=== PATIENT | female | born 1960 | race Caucasian/White ===

== ENCOUNTER 2018-04-18 13:01 | Outpatient (CLI) | payer BC, SELFPAY ==
--- NOTE | 2018-04-18 11:01 | DI.RAD_ITS ---
SYMPTOM/DIAGNOSIS: RT KNEE PJAIN, M25.561 RIGHT KNEE: Femoral tibial joint spaces are well maintained. There is mild spurring from the femoral intercondylar notch. There is mild narrowing and spurring of the patellofemoral joint. No joint effusion is seen. 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
== END 2018-04-18 13:21 ==
PROVIDERS: PCP Family Medicine; Visit Provider Internal Medicine
DX: M25.561 Pain in right knee (principal); M22.2X1 Patellofemoral disorders, right knee
CPT/HCPCS: 73562

== ENCOUNTER 2018-05-02 11:17 | Outpatient (CLI) | payer BC, SELFPAY ==
--- NOTE | 2018-05-02 11:26 | DI.US_ITS ---
SYMPTOMS/DIAGNOSIS: RIGHT LEG PAIN, M79.604 RIGHT LEG ULTRASOUND: There is no evidence of DVT. No popliteal cyst is demonstrated.
== END 2018-05-02 11:37 ==
PROVIDERS: PCP Family Medicine; Visit Provider Family Medicine
DX: M79.604 Pain in right leg (principal)
CPT/HCPCS: 93971

== ENCOUNTER 2019-01-06 11:28 | Outpatient (REF) | payer BC, SELFPAY ==
--- NOTE | 2019-01-06 10:00 | PAPFT_PTH ---
PATIENT: Bee Ortega LOC: [facility] U#:[id number] AGE/SX: 58/F ROOM: RE01/06/[address]: Erica Luna MD : 1960 BED: DIS: 01/06/2019 SPEC #: [id number] RECD: 01/06/19 13:02 STATUS: ANGÉLICA CHOWDHURY #: [id number] ADALGISA: 01/06/19 10:[address]: Erica Luna DEPT: [facility] Cytology RECD BY: Nat Moody Tissues: 1 - CX/ENDOCX FOR PAP SMEARS Procedures: PAP THIN PREP/UVM Screening Comments: [id number]
== END 2019-01-06 11:48 ==
LOC: LBN 11:28
PROVIDERS: PCP Family Medicine; Visit Provider Family Medicine
DX: Z12.4 Encounter for screening for malignant neoplasm of cervix (principal)
CPT/HCPCS: 88142

== ENCOUNTER 2019-01-07 01:03 | Outpatient (CLI) | payer BC, SELFPAY ==
--- NOTE | 2019-01-07 12:34 | DI.US_ITS ---
SYMPTOM/DIAGNOSIS: PELVIC PAIN, R10.2 PELVIC ULTRASOUND: Transabdominal and transvaginal exams were performed. The transabdominal exam is quite limited due to an empty bladder. The uterus measures 7.8 by 2.9 by 4.5 cm. A 2.2 cm. fibroid is seen near the fundus. The endometrial stripe measures 2 mm. The right ovary is normal in size and appearance. No cysts or masses are seen. The left ovary was unable to be visualized either transabdominally or transvaginally. No free fluid is seen. IMPRESSION: Non visualization of the left ovary. Small uterine fibroid.
== END 2019-01-07 01:23 ==
PROVIDERS: PCP Family Medicine; Visit Provider Family Medicine
DX: R10.2 Pelvic and perineal pain (principal); D25.9 Leiomyoma of uterus, unspecified
CPT/HCPCS: 76830; 76856

== ENCOUNTER 2019-03-11 01:45 | Outpatient (CLI) | payer BC, SELFPAY ==
--- NOTE | 2019-03-11 12:17 | DI.MAMMO_ITS ---
EXAM: MG MAMMO SCREENING CLINICAL HISTORY: screening Z12.39 TECHNIQUE: Bilateral full field digital CC and MLO mammographic images were obtained with 3D tomosyn thesis and utilizing computer aided detection (CAD). COMPARISON: Available for comparison. FINDINGS: Masses/Architectural Distortion: None seen. Microcalcifications: No suspicious pleomorphic-type are seen. Skin Thickening/Nipple Retraction: None. IMPRESSION: 1. No significant interval change with no specific features of malignancy noted. 2. Unless there is more urgent need, screening mammography is recommended, as per [employer] guidelines. ACR BI-RAD Category- 1 Negative Breast Density - Category C - Heterogeneously dense The mammogram demonstrates the patient's breast tissue is dense. Dense breast tissue is very common a nd is not abnormal but dense breast tissue can make it harder to find cancer on a mammogram. Also, de nse breast tissue may increase their breast cancer risk. This information about the result of the [facility] mogram report was provided to the patient to raise their awareness. Use this report when you speak wi th the patient about their risks for breast cancer, which includes their family history. At that time , you may recommend for more screening tests (Ultrasound or MRI) as they might be useful based on the ir risk. A negative radiographic report should not delay biopsy if a dominant or clinically suspicious mass is present. Up to ten percent of cancers are not identified on mammography. A negative report may reinforce clinical impression. Adenosis and dense breasts may obscure an underlying neoplasm. False positive reports average 6 to 10%.
== END 2019-03-11 02:05 ==
PROVIDERS: PCP Family Medicine; Visit Provider Family Medicine
DX: Z12.39 Encounter for other screening for malignant neoplasm of breast (principal)
CPT/HCPCS: 77063; 77067

== ENCOUNTER 2020-03-30 07:37 | Outpatient (CLI) | payer BC, SELFPAY ==
[2020-03-31 17:58] LABS: SARS-CoV-2 RNA Not Detected (NotDetected); SARS-CoV-2 RNA Source Nasal/Nares
== END 2020-03-30 07:57 ==
PROVIDERS: PCP Family Medicine; Visit Provider Surgery
DX: Z01.818 Encounter for other preprocedural examination (principal); Z11.59 Encounter for screening for other viral diseases
CPT/HCPCS: U0003

== ENCOUNTER 2020-04-02 11:12 | Day surgery (SDC) | payer BC, SELFPAY ==
[2020-04-02 11:29] VITALS: BP 136/89; PULSE 70; RESP 17; TEMP 36.3; O2SAT 97
[2020-04-02] MEDS: Lactated Ringers 1,000 ML 80 ML IV (11:57)
--- NOTE | 2020-04-02 15:03 | BOWEL_PTH ---
PATIENT: Bee Ortega LOC: [facility] U#:[id number] AGE/SX: 59/F ROOM: RE04/02/[address]: Mitali Schaefer MD : 1960 BED: DIS: 04/02/2020 SPEC #: [id number] RECD: 04/02/20 16:05 STATUS: ANGÉLICA REMohini #: [id number] ADALGISA: 04/02/20 15:[address]: Mitali Schaefer DEPT: Surgical Specimen RECD BY: Nat Moody ENTERED: 04/02/20 16:06 SP TYPE: Bowel OTHR DR: Erica Luna MD Tissues: 1 - BIOPSY BOWEL Procedures: GROSS AND MICRO LEVEL 4 Comments: [id number]
--- NOTE | 2020-04-02 15:15 | W.PM.DSUDISC ---
Discharge Plan Disposition Patient Disposition: HOME Condition: Good Discharge Details Reason For Visit: Colonoscopy Attending Provider: Mitali Schaefer Primary Care Provider: Erica Luna Home Meds and New Rx's Prescriptions: Continued sertraline 50 mg tablet 50 mg PO DAILY Qty: 90 RF: 4 Women's Daily Formula 1 EACH tablet 1 ea PO DAILY RF: 0 calcium carbonate-vitamin D3 1 EACH tablet 1 ea PO DAILY RF: 0 fluconazole 150 mg tablet 150 mg PO ONCE Qty: 2 RF: 1 cholecalciferol (vitamin D3) [Vitamin D3] 25 mcg (1,000 unit) Tablet,Chewable 25 mcg PO DAILY RF: 0 Discontinued polyethylene glycol 3350 17 gram/dose powder 238 g PO ONCE Qty: 238 RF: 0 bisacodyl [Dulcolax (bisacodyl)] 5 mg tablet,delayed release (DR/EC) 5 mg PO ONCE Qty: 4 RF: 0 Discharge Instructions Additional Instructions: Findings: One tiny polyp was removed. My office will contact you with biopsy results. Follow up: If the polyp is adenomatous plan for a colonoscopy in 5 years. Please call if you develop: fevers >101.5 Nausea or Vomiting Abdominal pain that is not transient DAY SURGERY UNIT POST COLONOSCOPY INSTRUCTIONS 1. Because there will be medication in your system for the next 24 hours, you may feel a little sleepy. Your coordination will be affected. Therefore: a. Do not drive or operate dangerous equipment for 24 hours. b. Do not drink alcohol beverages for 24 hours (not even beer). c. Plan to go home and rest for the day. 2. Generally there are no restrictions on your activity after a day or so has gone by, but you may feel a bit fatigued for a few days. 3 After you arrive home you may have a light meal and return to a normal diet as you can tolerate it without feeling sick to your stomach. 4. After surgery, you may feel pain or discomfort. This should be only transient, but if it persists please contact your doctor. 5. If there are any questions regarding the findings of your procedure, please feel free to contact your doctor. 6. If you are unable to contact your doctor with a problem, contact the hospital at [phone]. 7. Continue all your regular medications unless directed otherwise. I understand the above instructions and have no questions. Signature of Patient or Responsible Adult Escort Date/Time Name of Responsible Adult Escort Signature of Nurse Date/Time Activity:: Activity as Tolerated Diet:: As Tolerated Discharge Orders Discharge Orders: Discharge Order (Routine); Ordered 04/02/20 Ordered By: Mitali Schaefer
--- NOTE | 2020-04-02 15:17 | W.COLOREPORT ---
Date of service: 04/02/20 Time of Service: 15:17 Colonoscopy Report Date of procedure: 04/02/20 Pre-op diagnosis general: Screening Post-op diagnosis procedure note: other (Diverticulosis, sigmoid polyp) Procedure: Colonoscopy with cold forceps polypectomy Surgeon: Mitali Schaefer Anesthesia proc note operative: MAC Indications: This 59 year old woman presents for routine screening colonoscopy. Her prior in 2009 was normal. She has no symptoms or FH colon cancer. Procedure Description: The patient was placed in the left Jones position. Propofol was titrated to sedation. Digital rectal examination revealed no abnormalities. The scope was advanced to the cecum without difficulty. The ileocecal valve and appendiceal orifice were clearly identified. The prep was good. The scope was slowly withdrawn over the course of greater than 6 minutes with no abnormalities seen in the ascending, transverse, descending colon. In the sigmoid a diminuitive polyp was removed with the cold forceps. She had mild diverticulosis. The rectum was normal including on retroflexed view. The patient tolerated the procedure well and was stable to recovery. If the polyp is adenomatous, plan for a colonoscopy in 5 years.
[2020-04-02 16:03] VITALS: BP 127/54; PULSE 60; RESP 16; TEMP 36.5; O2SAT 100
[2020-04-02 16:33] VITALS: BP 147/85; PULSE 71; RESP 18; TEMP 36.4; O2SAT 97
== END 2020-04-02 16:32 | disposition home or self-care (01) ==
PROVIDERS: PCP Family Medicine; Visit Provider Surgery
PROC: 0DJD8ZZ Inspection of Lower Intestinal Tract, Via Natural or Artificial Opening Endoscopic (ICD-10-PCS; CPT 45378; principal; 2020-04-02 13:45)
DX: Z12.11 Encounter for screening for malignant neoplasm of colon (principal); K57.30 Diverticulosis of large intestine without perforation or abscess without bleeding; D12.5 Benign neoplasm of sigmoid colon
CPT/HCPCS: 45380; 88305; J2001

== ENCOUNTER 2020-04-13 00:42 | Outpatient (CLI) | payer BC, SELFPAY ==
--- NOTE | 2020-04-13 10:49 | DI.MAMMO_ITS ---
EXAM: MAMMO SCREENING CLINICAL HISTORY: screening,Z12.39 TECHNIQUE: Mammograms were interpreted according to the usual protocol including computer analysis w [employer] CAD system, tomosynthesis and C-view imaging. COMPARISON: FINDINGS: The breasts are of moderate density with fairly symmetrical distribution of fibroglandular tissue. N o dominant mass or clumped microcalcification is identified in either breast. The current examinatio n is compared with previous examinations including February 2019 and there has been no gross interval change in appearance in comparison with the prior studies. IMPRESSION: No specific evidence of malignancy at this time. Routine screening examinations are suggested at ye liz intervals in this age group according to the ACS ACR guidelines. BI-RADS Category 1 - Negative Breast Density - Category B - Scattered areas of fibroglandular density
== END 2020-04-13 01:02 ==
PROVIDERS: PCP Family Medicine; Visit Provider Family Medicine
DX: Z12.31 Encounter for screening mammogram for malignant neoplasm of breast (principal)
CPT/HCPCS: 77063; 77067

== ENCOUNTER 2020-07-10 09:04 | Emergency (ER) | payer BC, SELFPAY ==
[2020-07-10] VITALS (46 sets, daily range): BP systolic 126–161; BP diastolic 59–104; PULSE 64–81; RESP 9–18; TEMP 36.3; O2SAT 92–100
--- NOTE | 2020-07-10 09:15 | DI.RAD_ITS ---
EXAM: XR WRIST RT COMPLETE CLINICAL HISTORY: pain s/p fall. TECHNIQUE: 2D digital imaging was performed. COMPARISON: No exams were available for comparison FINDINGS: BONES: There is a comminuted fracture of the distal right radius. The fracture is impacted and displ aced dorsally 1/2 shaft's width. There also appears to be widening of the triquetral pisiform joint. No bony destructive lesion is seen. JOINTS: The carpal bones are normally aligned. Mild degenerative changes are seen at the 1st CMC join t. SOFT TISSUE: There is moderate soft tissue swelling about the wrist. IMPRESSION: 1. Comminuted displaced and impacted fracture of the distal right radius. 2. Findings suspicious for separation of the triquetral pisiform joint. DATA REPOSITORY: RADIATION DOSE DELIVERED:
--- NOTE | 2020-07-10 09:31 | W.ED.GENAD ---
Discharge Plan Disposition Patient Disposition: HOME Condition: Stable Discharge Details Clinical Impression: Fracture of right wrist Primary Care Provider: Erica Luna ED Provider: Sabas Carson Home Meds and New Rx's Prescriptions: New oxycodone 5 mg tablet 5 mg PO TID PRN (Reason: pain) Qty: 10 RF: 0 Continued Women's Daily Formula 1 EACH tablet 1 ea PO DAILY RF: 0 calcium carbonate-vitamin D3 1 EACH tablet 1 ea PO DAILY RF: 0 sertraline 25 mg tablet 25 mg PO DAILY Qty: 90 RF: 4 cholecalciferol (vitamin D3) [Vitamin D3] 25 mcg (1,000 unit) Tablet,Chewable 25 mcg PO DAILY RF: 0 Discharge Instructions Additional Instructions: You had a sedation done to reduce a wrist fracture/dislocation call Dr. Moody's office Sunday to arrange for a follow up appointment return to the emergency department for severe worsening pain not controlled with pain medications you can take 1000mg tylenol and 600mg ibuprofen every 6 hours for pain as needed. If you need more pain relief take 1 oxycodone do not drink alcohol or drive if you take this medicine Referrals: Justo Moody MD [ [facility]FF PHYSICIAN] - Medical Decision Making 59 yo female comes in with right wrist pain s/p fall. She was running as she does frequently this morning and slipped on ice landing on her right wrist and buttock. Denies loc and has no headache, neck pain, chest pain, abdominal pain or leg pain and is walking without a limp. She did have some soreness around coccyx but has none now. She has no tendenress of c spine, t or l spine including coccyx. She has deformed right wrist and pain, normal sensation and pulses in the hand. No pain in proximal foreharm, elbow, humerus or shoulder. Will obtain xrays and reassess. Given lack of pain elsewhere or tenderness doubt injuries such as tbi, c spine injury, chest or abdominal injuries so do not feel additional imaging indicated. xray of wrist confirms fracture/dislocation of wrist. Discussed with Dr. Moody who will assist with reduction. Pt discussed risks of procedural sedation and is willing to proceed with sedation with propofol. No new pain, remains hemodynamically stable pt sedated with 65mg propofol and successful reduction done by Dr. Moody without complications. Pt will be monitored until able to ambulate and likely be d/c'd with follow up with Dr. Moody pt ambulating without difficulty and normal sensation and cap refill, tolerating po. Will d/c and have her f/u with ortho Differential Diagnosis Differential Diagnosis: fracture, dislocation Imaging Data Radiologic Study: Attestation: I personally reviewed and interpreted this imaging study as follows: Imaging: X-Ray My impression: wrist fracture/dislocation HPI General Mode of arrival: ambulatory. Date/Time Provider Initiated Documentation: 07/10/20 09:16. Limitations to Documentation: no limitations. Information obtained by: patient. History of Present Illness 59 year old F presents to the emergency department with the chief complaint of right wrist pain, described as moderate, Patient started experiencing this hour(s) (1) and it has been constant. No relieving factors improve symptom(s), No exacerbating factors reported . Patient did receive the following treatments prior to arrival, none Related Data Home Medications Medication Instructions Recorded Confirmed Women's Daily Formula 1 ea PO DAILY 12/23/12 07/10/20 calcium carbonate-vitamin D3 1 ea PO DAILY 11/27/16 07/10/20 cholecalciferol (vitamin D3) 25 mcg PO DAILY 04/01/20 07/10/20 [Vitamin D3] sertraline 25 mg tablet 25 mg PO DAILY #90 tab 07/09/20 07/10/20 oxycodone 5 mg PO TID PRN #10 tab 07/10/20 Previous Rx's Medication Instructions Recorded sertraline 25 mg tablet 25 mg PO DAILY #90 tab 07/09/20 oxycodone 5 mg PO TID PRN #10 tab 07/10/20 Allergies Allergy/AdvReac Type Severity Reaction Status Date / Time latex Allergy Mild RASH Verified 07/10/20 09:25 General Stated Complaint: Orthopedic RONI: 3 Review of Systems All systems reviewed & are unremarkable except as noted in HPI and below Constitutional Constitutional: Denies chills, Denies fever(s) and Denies weakness Cardiovascular Cardiovascular: Denies chest pain and Denies dyspnea Respiratory Respiratory: Denies cough and Denies dyspnea Gastrointestinal Gastrointestinal: Denies abdominal pain, Denies nausea and Denies vomiting Musculoskeletal Musculoskeletal: Denies joint swelling Neurologic Neurologic: Denies weakness Psychiatric Psychiatric: Denies depression [facility] Medical History Depressive disorder Hot flashes (04/27/15) HRT x OAB (overactive bladder) Tubular adenoma colonoscopy 2019/ Surgical History H/O eye surgery History of colonoscopy R eye for strabismus correction Family History Mother No problems noted. Father , 100 Essential hypertension Sister Essential hypertension Depression Brother Cancer Brother , 35 No problems noted. Maternal Grandfather , OLD AGE at age 75. No problems noted. Paternal Grandfather Heart disease Maternal Grandmother No problems noted. Paternal Grandmother Heart disease Son No problems noted. Daughter No problems noted. Social History Smoking/Tobacco Use Status: Never Smoking risk assessment performed?: Yes Alcohol Intake: current Alcohol Intake frequency: 0-2 drinks per day Alcohol type: beer and wine Drug use: Never Substance use type: does not use Caregiver/Support person: No Household members: spouse Housing: house Communication Needs: None Do you need help understanding health information?: Never Pets and animals: Yes Pets and animals: dog(s) Sexually active: Yes Do you think of yourself as: straight/heterosexual Current gender identity: female What is your relationship status?: How often do you talk on the phone with friends or family?: three or more times per week How often do you get together with friends or relatives?: decline to answer How often do you attend mandaeism or methodist services?: 1-3 times per year Do you belong to any clubs or organized social groups?: yes Panel score (0-1 are the most socially isolated patients): 3 What type of physical activity do you participate in: running Duration: 15-30 minutes/day Frequency: 5-6 times per week [place]/Protestant: Presybeterian Special [place] needs: No Seatbelt use: always Helmet use: Yes Helmet use: always Drive intox or ride w/intox route cdl driver: No Do you feel safe at home: Yes Do you feel safe in your relationship?: Yes Exam Const General: no acute distress Orientation: alert HENMT Head: normal to inspection Ears: external ears normal General nose exam: external nose normal Mouth: moist mucous membranes Eyes General: appearance normal, both eyes and all related structures Neck Neck: normal visual inspection Resp Effort & Inspection: normal respiratory effort and able to speak in complete sentences Cardio Rate: regular rate Skin General skin exam: no rashes or lesions noted Neuro General: patient alert and patient oriented x3 Extrem General: capillary refill normal Psych Mental Status: mental status grossly normal Course Vital Signs Vital signs: Vital Signs Temperature 36.3 C L 07/10/20 09:20 Pulse 72 07/10/20 09:20 Respiratory Rate 18 07/10/20 09:20 Blood Pressure 157/87 H 07/10/20 09:20 Pulse Oximetry 99 07/10/20 09:20 Temperature 36.3 C L 07/10/20 09:20 Temperature Source Temporal Artery Scan 07/10/20 09:20 Pulse 72 07/10/20 09:20 Respiratory Rate 18 07/10/20 09:20 Respiratory Effort Non-Labored 07/10/20 09:27 Blood Pressure 157/87 H 07/10/20 09:20 Blood Pressure Position Sitting 07/10/20 09:20 Pulse Oximetry 99 07/10/20 09:20 Oxygen Delivery Method Room Air 07/10/20 09:20 Oxygen Flow Rate 0 07/10/20 09:20 Pain Level 9 07/10/20 09:20 Procedures Procedural Sedation Indication: fracture/dislocation reduction ASA Class: I Preparation: process environmental technician applied, pulse oximeter, capnometry used and supplemental O2 applied IV Propofol dose (mg): 65 Patient Tolerated Procedure: well Complications: none
[2020-07-10] MEDS: HYDROmorphone 2 MG/ML VIAL 1 MG IVP ×2 (09:40→10:31)
[2020-07-10] MEDS: Normal Saline Flush 10 ML SYR IVP (09:41)
--- NOTE | 2020-07-10 10:04 | NUR.NOTE ---
1000 spoke with patient's updated and notified that we are waiting for xray to be done.
--- NOTE | 2020-07-10 10:15 | DI.RAD_ITS ---
EXAM: XR FLOURO OR C-ARM <1 HR CLINICAL HISTORY: reduciton of fracture/dislocation TECHNIQUE: 2D and realtime digital imaging was performed. CONTRAST MATERIAL: Water soluble contrast was administered. COMPARISON: No exams were available for comparison FINDINGS: Fluoroscopy was provided for Dr. Moody during the performance of a reduction of the distal right radial fracture. Please refer to the procedure report for complete details. Fluoro time: 12.8 seconds RADIATION DOSE DELIVERED:
--- NOTE | 2020-07-10 10:39 | DI.VRAD_ITS ---
PROCEDURE INFORMATION: Exam: XR Right Wrist Exam date and time: 07/10/2020 9:30 AM Age: 59 years old Clinical indication: Injury or trauma; Fall; Sprain or strain; Wrist; Right TECHNIQUE: Imaging protocol: XR Right wrist. Views: 3 or more views. COMPARISON: No relevant prior studies available. FINDINGS: Bones/joints: Comminuted, impacted, and dorsally displaced and angulated intra-articular fracture of the distal right radius. 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 IMPRESSION: Comminuted, impacted, and dorsally displaced and angulated intra-articular fracture of the distal right radius. Dictated and Authenticated by: Lizett Jeffrey MD. Ordering:REBA Obregon MD
[2020-07-10] MEDS: Propofol 200 MG/20 ML VIAL 65 MG IVP (11:14)
--- NOTE | 2020-07-10 11:25 | W.ORTHOCONSU ---
Date of service: 07/10/20 Time of Service: 11:03 History of Present Illness History of Present Illness Chief Complaint: Right Wrist Fracture Narrative: Bee is a 59yo female who was running this morning. She slipped and fell onto an outstretched right hand. She had immediate pain and deformity. She was brought to the [facility] ED and diagnosed with a displaced distal radius fracture on the right. She currently reports pain about the wrist. She also has some vague numbness over the tips of the thumb and ring finger. She denies any issue with that hand previously. She is RHD. Consults Consult date: 07/10/20 Requesting physician: Sabas Carson Consult Reason Right Distal Radius Frcture Assessment and Plan Assessment and plan (1) Fracture of right distal radius: Status: Acute Assessment and plan: Bee is a 59yo female who fell onto an outstretched right hand with a significantly displaced right distal radius fracture. She was reduced in the ED with sedation with a nearly anatomic reduction. A posterior/anterior plast splint was applied with a significant mold,using x-ray guidance. After sedation, she had improvement with the numbness of the fingers. The x-rays showed anatomic reduction after the splint was set. She will need to return to the office in 1 week for x-ray to ensure that there is no interval displacement or change. Likely splint for the next few weeks and then transition to a cast or brace. Qualifiers: Encounter type: initial encounter Fracture type: closed Fracture morphology: Colles' Qualified Code(s): S52.531A - Colles' fracture of right radius, initial encounter for closed fracture Review of Systems All systems reviewed & are unremarkable except as noted in HPI and below PFSH Medical History Depressive disorder Hot flashes (04/27/15) HRT x -2016 OAB (overactive bladder) Tubular adenoma colonoscopy 2019/ Surgical History H/O eye surgery History of colonoscopy R eye for strabismus correction Family History Mother No problems noted. Father , 100 Essential hypertension Sister Essential hypertension Depression Brother Cancer Brother , 35 No problems noted. Maternal Grandfather , OLD AGE at age 75. No problems noted. Paternal Grandfather Heart disease Maternal Grandmother No problems noted. Paternal Grandmother Heart disease Son No problems noted. Daughter No problems noted. Social History Smoking/Tobacco Use Status: Never Smoking risk assessment performed?: Yes Alcohol Intake: current Alcohol Intake frequency: 0-2 drinks per day Alcohol type: beer and wine Drug use: Never Substance use type: does not use Caregiver/Support person: No Household members: spouse Housing: house Communication Needs: None Do you need help understanding health information?: Never Pets and animals: Yes Pets and animals: dog(s) Sexually active: Yes Do you think of yourself as: straight/heterosexual Current gender identity: female What is your relationship status?: How often do you talk on the phone with friends or family?: three or more times per week How often do you get together with friends or relatives?: decline to answer How often do you attend temple or methodist services?: 1-3 times per year Do you belong to any clubs or organized social groups?: yes Panel score (0-1 are the most socially isolated patients): 3 What type of physical activity do you participate in: running Duration: 15-30 minutes/day Frequency: 5-6 times per week [place]/Mandaen: Tenriism Special [place] needs: No Seatbelt use: always Helmet use: Yes Helmet use: always Drive intox or ride w/intox limo driver: No Do you feel safe at home: Yes Do you feel safe in your relationship?: Yes Exam Const General: cooperative, healthy appearing, comfortable and no acute distress Nutritional Appearance: average body habitus Orientation: alert, awake and oriented x3 HENMT Head: normal to inspection, normocephalic and atraumatic Extrem Other: Obvious deformity to the right distal radius. There is dorsal prominendce and displacement of the hand. No skin break, laceration, or abrasion. She is able to demonstrate some thumb IP flexion and extension as well as finger abduction/adduction. Some decreased sensation over the palmar aspect of the thumb tip as well as the radial aspect of the ring finger primarily. No dense numbness in the median/radial/ulnar distribution. Palpable radial pulse. Pain to palpation of the distal radius and ulna. Results Last Vital Signs Temp 36.3 C L 07/10/20 09:20 Pulse 69 07/10/20 11:21 Resp 16 07/10/20 11:21 BP 141/84 H 07/10/20 11:21 Pulse Ox 100 07/10/20 11:21 Imaging Imaging Studies: Xray of the right wrist demonstrates a mildl comminuted and completely displaced distal radius fracture with significant dorsal displacement and shortening. No carpal fracture or malalignment. Procedures Orthopedic Fracture Reduction Right Wrist: Time out performed: Yes Side: right Fracture reduction location: radius Analgesia: procedural sedation Technique: direct manipulation Post-reduction x-rays demonstrate: anatomical reduction Post-reduction neuro exam: intact Post-reduction vascular exam: intact Splint applied: Yes Patient tolerated procedure: well
--- NOTE | 2020-07-10 11:28 | NUR.NOTE ---
1100 Time done for reduction of right wrist with conscious sedation. Samia RT in room along with Dr. Heidy Dr, Sarath Carson RN, Radiology and process description writer. [address] Carson 65mg. Splint applied and imaging done. 1115 patient awake, drowsy. 1130 Patient fully awake, states minimal pain. Sling applied to right arm. See Conscious sedation documentation.
--- NOTE | 2020-07-10 11:52 | RESPIRATORY ---
07/10/20 10:55am- Pt here for a right wrist reduction. BVM,Suction and ETC02 set up. Pre- HR 74, SPO2 100% on 3 LPM NC, ETCO2 48 mmhg, RR, 14,141/78. Throughout- HR 68, SPO2 100% on 5 LPM NC,RR 12, ETCO2 44mmhg, 143/83. Post HR 70, SPO2 100% on 3 LPM NC , RR 13, ETCO2 38mmhg, 134/81. End of case Pt is alert and talking.
--- NOTE | 2020-07-10 12:08 | NUR.NOTE ---
1204 patient assisted to standing position complains of slight dizziness. Good sensation and CMS to right hand/fingers. Drinking soda.
== END 2020-07-10 12:24 | disposition home or self-care (01) ==
PROVIDERS: Emergency Provider Emergency Medicine; PCP Family Medicine
DX: S52.591A Other fractures of lower end of right radius, initial encounter for closed fracture (principal); W00.0XXA Fall on same level due to ice and snow, initial encounter
CPT/HCPCS: 76000; 96374; 96376; 99253; 99285; 25605; 73110; 99284; J2704

== ENCOUNTER 2020-07-20 14:54 | Outpatient (CLI) | payer BC, SELFPAY ==
--- NOTE | 2020-07-20 14:45 | DI.RAD_ITS ---
CLINICAL HISTORY: F/U FX TECHNIQUE: 2D digital imaging was performed. COMPARISON: CR,XR XR WRIST RT COMPLETE from 07/10/2020 RF XR FLOURO OR C-ARM <1 HR from 07/10/2020 FINDINGS: BONES: There is again seen a mildly displaced and impacted distal right radial fracture. The patient 's wrist is in a cast. No bony destructive lesion is seen. JOINTS: The carpal bones are normally aligned. SOFT TISSUE: Normal. IMPRESSION: Mildly displaced and impacted distal right radial fracture. DATA REPOSITORY: RADIATION DOSE DELIVERED:
== END 2020-07-20 14:55 | disposition home or self-care (01) ==
LOC: DIORS 14:54
PROVIDERS: PCP Family Medicine; Visit Provider Physician Assistant
DX: S52.591A Other fractures of lower end of right radius, initial encounter for closed fracture (principal)
CPT/HCPCS: 73100

== ENCOUNTER 2020-07-29 12:48 | Outpatient (CLI) | payer BC, SELFPAY ==
--- NOTE | 2020-07-29 10:45 | DI.RAD_ITS ---
EXAM: XR WRIST RT LIMITED CLINICAL HISTORY: F/U FRACTURE. TECHNIQUE: 2D digital imaging was performed. COMPARISON: CR XR WRIST RT LIMITED from 07/20/2020 FINDINGS: There is continued satisfactory in position of the fracture fragments of the distal radius. Fracture line still evident. No significant ulnar variance. No other fractures identified. IMPRESSION: DATA REPOSITORY: RADIATION DOSE DELIVERED:
== END 2020-07-29 12:49 | disposition home or self-care (01) ==
LOC: DIORS 12:49
PROVIDERS: PCP Family Medicine; Visit Provider Student in an Organized Health Care Education/Training Program
DX: S52.591A Other fractures of lower end of right radius, initial encounter for closed fracture (principal)
CPT/HCPCS: 73100

== ENCOUNTER 2020-08-05 13:14 | Outpatient (CLI) | payer BC, SELFPAY ==
--- NOTE | 2020-08-05 11:00 | DI.RAD_ITS ---
EXAM: XR WRIST RT LIMITED CLINICAL HISTORY: F/U FRACTURE. TECHNIQUE: 2D digital imaging was performed. COMPARISON: CR XR WRIST RT LIMITED from 07/29/2020 FINDINGS: Cast material has been removed. Fracture lines in the distal radius are still evident as is a nondis placed fracture of the base of the ulnar styloid. Alignment of the fracture fragments is unchanged. If clinically indicated CT scan could be performed to determine if there is violation of the radiocarpal joint surface. IMPRESSION: DATA REPOSITORY: RADIATION DOSE DELIVERED:
== END 2020-08-05 13:15 | disposition home or self-care (01) ==
LOC: DIORS 13:15
PROVIDERS: PCP Family Medicine; Referring Provider Family Medicine; Visit Provider Physician Assistant
DX: S52.531D Colles' fracture of right radius, subsequent encounter for closed fracture with routine healing
CPT/HCPCS: 73100

== ENCOUNTER 2020-08-19 13:33 | Outpatient (CLI) | payer BC, SELFPAY ==
--- NOTE | 2020-08-19 11:00 | DI.RAD_ITS ---
EXAM: XR WRIST RT LIMITED INDICATION: F/U FRACTURE. COMPARISON: CR,XR XR WRIST RT COMPLETE from 07/10/2020 CR,XR XR WRIST RT COMPLETE from 07/10/2020 CR XR WRIST RT LIMITED from 07/20/2020 CR XR WRIST RT LIMITED from 07/20/2020 CR XR WRIST RT LIMITED from 07/29/2020 CR XR WRIST RT LIMITED from 08/05/2020 CR XR WRIST RT LIMITED from 08/05/2020 TECHNIQUE: 2D digital imaging was performed. FINDINGS: There has been no change in the alignment of the distal radial fracture. Fracture lines are still e vident. No new abnormalities are seen. DATA REPOSITORY: RADIATION DOSE DELIVERED:
== END 2020-08-19 13:34 | disposition home or self-care (01) ==
LOC: DIORS 13:34
PROVIDERS: PCP Family Medicine; Referring Provider Family Medicine; Visit Provider Physician Assistant Surgical
DX: S52.531D Colles' fracture of right radius, subsequent encounter for closed fracture with routine healing (principal)
CPT/HCPCS: 73100

== ENCOUNTER 2020-09-17 09:07 | Outpatient (CLI) | payer BC, SELFPAY ==
--- NOTE | 2020-09-17 09:10 | DI.RAD_ITS ---
Exam(s) XR WRIST RT LIMITED EXAM: XR WRIST RT LIMITED CLINICAL HISTORY: f/u fracture. TECHNIQUE: 2D digital imaging was performed. COMPARISON: CR XR WRIST RT LIMITED from 08/19/2020 FINDINGS: BONES: There has been no change in alignment of the distal right radial fracture. There has been con tinued healing of the fracture. No new fracture or dislocation is identified. No bony destructive l esion is seen. JOINTS: The carpal bones are normally aligned. SOFT TISSUE: Normal. IMPRESSION: Stable healing distal right radial fracture. DATA REPOSITORY: RADIATION DOSE DELIVERED:
== END 2020-09-17 09:08 | disposition home or self-care (01) ==
LOC: DIORS 09:07
PROVIDERS: PCP Family Medicine; Referring Provider Family Medicine; Visit Provider Physician Assistant
DX: S52.531D Colles' fracture of right radius, subsequent encounter for closed fracture with routine healing (principal)
CPT/HCPCS: 73100

== ENCOUNTER 2021-01-31 02:45 | Outpatient (CLI) | payer BC, SELFPAY ==
[2021-01-31 11:58] LABS: Calculated LDL 153 mg/dL (<100); Cholesterol 249 mg/dL (<200); Glucose 99 mg/dL (74-106); HDL Cholesterol 77 mg/dL (40-60); Triglyceride 97 mg/dL (<150)
== END 2021-01-31 02:46 | disposition home or self-care (01) ==
LOC: LBO 02:46
PROVIDERS: PCP Family Medicine; Visit Provider Family Medicine
DX: Z13.220 Encounter for screening for lipoid disorders (principal); Z13.1 Encounter for screening for diabetes mellitus
CPT/HCPCS: 36415; 80061; 82947

== ENCOUNTER 2021-02-17 02:20 | Outpatient (CLI) | payer BC, SELFPAY ==
--- NOTE | 2021-02-17 11:48 | DI.MAMMO_ITS ---
Exam(s) MAMMO SCREENING EXAM: MAMMO SCREENING CLINICAL HISTORY: screening,Z12.39 TECHNIQUE: Bilateral full field digital CC and MLO mammographic images were obtained with 3D tomosyn thesis and utilizing computer aided detection (CAD). COMPARISON: Available for comparison. FINDINGS: Masses/Architectural Distortion: None seen. Microcalcifications: No suspicious pleomorphic-type are seen. Skin Thickening/Nipple Retraction: None. IMPRESSION: 1. No significant interval change with no specific features of malignancy noted. 2. Unless there is more urgent need, screening mammography is recommended, as per [employer] guidelines. BI-RADS Category 1 - Negative Breast Density - Category B - Scattered areas of fibroglandular density Breast density category C or D implies that the patient has dense breast tissue. Dense breast tissue is very common and is not abnormal but dense breast tissue can make it harder to find cancer on a ma mmogram. Also, dense breast tissue may increase their breast cancer risk. This information about the result of the mammogram report was provided to the patient to raise their awareness. Use this report when you speak with the patient about their risks for breast cancer, which includes their family hist ory. At that time, you may recommend for more screening tests (Ultrasound or MRI) as they might be us eful based on their risk. A negative radiographic report should not delay biopsy if a dominant or clinically suspicious mass is present. Up to ten percent of cancers are not identified on mammography. A negative report may reinforce clinical impression. Adenosis and dense breasts may obscure an underlying neoplasm. False positive reports average 6 to 10%. Patient will receive a letter notifying them of these results.
== END 2021-02-17 02:40 ==
PROVIDERS: PCP Family Medicine; Visit Provider Family Medicine
DX: Z12.31 Encounter for screening mammogram for malignant neoplasm of breast (principal)
CPT/HCPCS: 77063; 77067

== ENCOUNTER 2022-01-20 17:03 | Outpatient (REF) | payer BC, SELFPAY ==
--- NOTE | 2022-01-20 15:30 | PAPFT_PTH ---
PATIENT: Bee Ortega LOC: [facility] U#:[id number] AGE/SX: 61/F ROOM: RE01/20/[address]: Tegan Jacobs : 1960 BED: DIS: 01/20/2022 SPEC #: [id number] RECD: 01/23/22 13:13 STATUS: ANGÉLICA CHOWDHURY #: [id number] ADALGISA: 01/20/22 15:[address]: Tegan Jacobs DEPT: [facility] Cytology RECD BY: Nat Moody Tissues: 1 - CX/ENDOCX FOR PAP SMEARS Procedures: PAP THIN PREP/UVM Screening HPV DNA PROBE Comments: [id number]
== END 2022-01-20 17:04 | disposition home or self-care (01) ==
LOC: LBN 17:03
PROVIDERS: PCP Family Medicine; Visit Provider Family Medicine
DX: Z12.4 Encounter for screening for malignant neoplasm of cervix (principal); Z11.51 Encounter for screening for human papillomavirus (HPV)
CPT/HCPCS: 88142; 87624

== ENCOUNTER → 2022-02-20 01:39 | Outpatient (CLI) | payer BC, SELFPAY ==
--- NOTE | 2022-02-20 06:45 | DI.MAMMO_ITS ---
Exam(s) MAMMO SCREENING EXAM: MAMMO SCREENING CLINICAL HISTORY: screening,z12.39 TECHNIQUE: Mammograms were interpreted according to the usual protocol including computer analysis w [employer] CAD system, tomosynthesis and C-view imaging. COMPARISON: 2012 through 2020 FINDINGS: The breasts are composed of scattered fibroglandular densities, Breast Density category B. No suspicious masses or suspicious microcalcifications are seen. No skin thickening or abnormal axillary lymph nodes are seen. There has been no significant change from prior exams. IMPRESSION: BI-RADS Category 1, Negative mammogram Yearly screening mammography is recommended. Breast Density - Category B, scattered fibroglandular densities. A negative radiographic report should not delay biopsy if a dominant or clinically suspicious mass is present. Up to ten percent of cancers are not identified on mammography. A negative report may reinforce clinical impression. Adenosis and dense breasts may obscure an underlying neoplasm. False positive reports average 6 to 10%. Patient will receive a letter notifying them of these results.
== END ==
PROVIDERS: PCP Family Medicine; Visit Provider Family Medicine
DX: Z12.31 Encounter for screening mammogram for malignant neoplasm of breast (principal)
CPT/HCPCS: 77063; 77067

== ENCOUNTER 2023-01-18 13:56 | Outpatient (CLI) | payer BC, SELFPAY ==
--- NOTE | 2023-01-18 12:01 | DI.RAD_ITS ---
Exam(s) XR HIP LT COMPLETE AP PELVIS EXAM: XR HIP LT COMPLETE AP PELVIS CLINICAL HISTORY: LEFT HIP PAIN. TECHNIQUE: 2D digital imaging was performed of the left hip. Two views were obtained. AP pelvis an d lateral left hip views were obtained. COMPARISON: No exams were available for comparison FINDINGS: BONES: No acute fracture is present. No bony destructive lesion is seen. JOINTS: No dislocation present. There are mild degenerative changes of the hips bilaterally with acet abular spurring noted. There are degenerative changes seen at the sacroiliac joints bilaterally. SOFT TISSUE: Normal. IMPRESSION: Mild degenerative changes seen at the left hip. DATA REPOSITORY: RADIATION DOSE DELIVERED:
== END 2023-01-18 13:57 | disposition home or self-care (01) ==
LOC: DIORS 13:57
PROVIDERS: PCP Family Medicine; Visit Provider Student in an Organized Health Care Education/Training Program
DX: M16.12 Unilateral primary osteoarthritis, left hip (principal)
CPT/HCPCS: 73502

== ENCOUNTER 2023-01-29 12:48 | Outpatient (REF) | payer BC, SELFPAY ==
--- NOTE | 2023-01-29 08:45 | PAPFT_PTH ---
PATIENT: Bee Ortega LOC: [facility]#:[id number] AGE/SX: 62/F ROOM: RE01/29/[address]: Blanche Mena NP : 1960 BED: DIS: 01/29/2023 SPEC #: [id number] RECD: 01/29/23 13:14 STATUS: ANGÉLICA REMohini #: [id number] ADALGISA: 01/29/23 08:[address]: Blanche Mena [facility]PT[facility] Cytology RECD BY: Nat Moody ENTERED: 01/29/23 13:15 SP TYPE: PAPFT OTHR DR: Tegan Jacobs Tissues: 1 - CX/ENDOCX FOR PAP SMEARS Procedures: PAP THIN PREP/UVM Screening HPV DNA PROBE Comments: [id number]
== END 2023-01-29 12:49 | disposition home or self-care (01) ==
LOC: NCHCN 12:48
PROVIDERS: PCP Family Medicine; Visit Provider Nurse Practitioner Family
DX: Z12.4 Encounter for screening for malignant neoplasm of cervix (principal); Z11.51 Encounter for screening for human papillomavirus (HPV)
CPT/HCPCS: 88142; 87624

== ENCOUNTER 2023-02-13 01:45 | Outpatient (CLI) | payer BC, SELFPAY ==
[2023-02-13 09:26] LABS: Calculated LDL 159 mg/dL (<100); Cholesterol 265 mg/dL (<200); HDL Cholesterol 84 mg/dL (40-60); TSH (W/Ref FT4) 2.27 uIU/mL (0.36-3.74); Triglyceride 112 mg/dL (<150)
== END 2023-02-13 01:46 | disposition home or self-care (01) ==
LOC: LBO 01:45
PROVIDERS: Nurse Practitioner Family; PCP Family Medicine; Visit Provider Family Medicine
DX: D36.9 Benign neoplasm, unspecified site (principal); M16.12 Unilateral primary osteoarthritis, left hip; N95.1 Menopausal and female climacteric states; R23.2 Flushing; Z00.00 Encounter for general adult medical examination without abnormal findings
CPT/HCPCS: 36415; 80061; 84443

== ENCOUNTER → 2023-11-05 14:03 | Outpatient (BNVA) | payer MEDICARE, SELFPAY | PROVIDERS: PCP Family Medicine; Referring Provider Family Medicine; Visit Provider Student in an Organized Health Care Education/Training Program | DX: M16.12 Unilateral primary osteoarthritis, left hip (principal) | CPT/HCPCS: 20611; J1010 ==

== ENCOUNTER 2023-12-17 15:18 | Outpatient (CLI) | payer MEDICARE, SELFPAY ==
--- NOTE | 2023-12-17 14:54 | DI.RAD_ITS ---
Exam(s) XR PELVIS AP EXAM: XR PELVIS AP CLINICAL HISTORY: OA L HIP. TECHNIQUE: 2D digital imaging was performed. Single AP view. COMPARISON: CR XR HIP LT COMPLETE AP PELVIS from 01/18/2023 FINDINGS: BONES: No acute fracture is present. No bony destructive lesion is seen. Enthesophytes from iliac w ings. Enthesophytes at greater trochanters, right greater than left. JOINTS: No dislocation present. Moderate narrowing of the left hip joint space, progressing from the prior exam. Subchondral cysts noted on both sides of the joint. Bilateral acetabular spurring prese nt. Mild degenerative changes of the SI joints. SOFT TISSUE: Normal. IMPRESSION: Moderate to severe degenerative changes of the left hip. DATA REPOSITORY: RADIATION DOSE DELIVERED:
== END 2023-12-17 15:19 | disposition home or self-care (01) ==
LOC: DIORS 15:18
PROVIDERS: PCP Family Medicine; Visit Provider Student in an Organized Health Care Education/Training Program
DX: M16.12 Unilateral primary osteoarthritis, left hip (principal)
CPT/HCPCS: 99213; 72170

== ENCOUNTER 2024-02-07 02:56 | Outpatient (CLI) | payer MEDICARE, SELFPAY ==
[2024-02-07 15:04] LABS: HCT 44.7 % (36.0-46.0); HGB 14.2 g/dL (11.2-15.7); MCH 30.6 pg (27.0-33.0); MCHC 31.8 % (32.0-36.0); MCV 96 fL (80-95); MPV 9.3 fL (8.0-11.0); Platelet Count 301 10^3/uL (130-400); RBC 4.64 10^6/uL (3.93-5.22); RDW 12.1 % (11.7-14.6); RDW-SD 43.2 fL; WBC 5.98 10^3/uL (4.4-10.8)
[2024-02-07 15:26] LABS: Anion Gap 2.9 mmol/L (3-11); BUN 11 mg/dL (7-18); CO2 32.1 mmol/L (21.0-32.0); CREATININE 0.7 mg/dL (0.55-1.02); Chloride 103 mmol/L (98-107); Estimated GFR 95.92 (mL/min/1.73m2); Glucose 97 mg/dL (74-106); Potassium 4.1 mmol/L (3.5-5.1); Sodium 138 mmol/L (136-145)
== END 2024-02-07 02:57 | disposition home or self-care (01) ==
LOC: LBO 02:56
PROVIDERS: PCP Family Medicine; Visit Provider Student in an Organized Health Care Education/Training Program
DX: M16.12 Unilateral primary osteoarthritis, left hip (principal); Z01.818 Encounter for other preprocedural examination
CPT/HCPCS: 36415; 80048; 85027

== ENCOUNTER 2024-02-19 05:54 | Day surgery (SDC) | payer MEDICARE, SELFPAY ==
[2024-02-19] VITALS (21 sets, daily range): BP systolic 95–150; BP diastolic 54–79; PULSE 59–83; RESP 10–24; TEMP 36.3–36.5; O2SAT 94–99; BMI 25.2
[2024-02-19] MEDS: Celecoxib 200 MG CAP 400 MG PO (06:35)
[2024-02-19] MEDS: Acetaminophen 500 MG TAB 1000 MG PO (06:35)
--- NOTE | 2024-02-19 06:53 | W.ANESPRE ---
General Info Date of Service Date Performed: 02/19/24 Height: 5 ft 7 in Weight: 73.3 kg Body Mass Index (BMI): 25.2 Surgical Procedure: Operation Date: 02/19/24 07:50 Proposed Procedure Side Surgeon p Hip Total Hip Anterior, ACTIS Left Justo Moody MD Meds Allergies and Home Medications Allergies Allergy/AdvReac Type Severity Reaction Status Date / Time latex Allergy Mild RASH Verified 02/19/24 06:18 nickel AdvReac Intermediate rash Verified 02/19/24 06:19 Home Medication ?Medication ?Instructions ?Recorded calcium carbonate 1,000 mg-vitamin 1 ea PO DAILY 11/27/16 D3 20 mcg (800 unit) tablet omega 4-ezw-cow-fish oil 60 mg-90 1 cap PO DAILY 04/25/23 mg-500 mg capsule (Fish Oil) escitalopram oxalate 10 mg tablet 10 mg PO DAILY #90 tabs 09/19/23 diphenhydramine HCl 2 % topical 1 applic topical BID PRN itching 12/24/23 gel (Benadryl) #103 mL magnesium 200 mg tablet 200 mg PO DAILY 12/24/23 Current Visit Medications: Current Medications Generic Name Dose Route Start Last Admin Trade Name Freq PRN Reason Stop Dose Admin Acetaminophen 1,000 mg 02/19/24 06:00 02/19/24 06:35 Acetaminophen 500 Mg Tab PO 02/19/24 23:59 1,000 mg PREOP CARLEE Administration Celecoxib 400 mg 02/19/24 06:00 02/19/24 06:35 Celecoxib 200 Mg Cap PO 02/19/24 23:59 400 mg PREOP CARLEE Administration Ringer's Solution 1,000 mls @ 80 mls/hr 02/19/24 06:00 IV 02/19/24 23:59 INFUSION CARLEE Cefazolin Sodium/Dextrose 2 gm in 50 mls @ 100 mls/hr 02/19/24 06:00 Ancef Duplex IVPB 02/19/24 23:59 PREOP CARLEE Tranexamic Acid/Sodium Chloride 1,000 mg in 100 mls @ 600 mls/hr 02/19/24 06:00 IVPB 02/19/24 23:59 PREOP CARLEE IV Miscellaneous Supplies 1 each 02/19/24 06:00 Iv Access IV 02/19/24 23:59 DIRECTED CARLEE Sodium Chloride 0 ml 02/19/24 06:00 Normal Saline Flush 10 Ml Syr IV 02/19/24 23:59 PRN PRN Sodium Chloride 0 ml 02/19/24 06:00 Normal Saline 10 Ml Vial IJ 02/19/24 23:59 DIRECTED PRN Sterile Water 0 ml 02/19/24 06:00 Water,Injection,Sterile 10 Ml Vial IJ 02/19/24 23:59 DIRECTED PRN PFSH Active Problems Active Problems: Problem Status Onset Code MIKEY (generalized anxiety disorder) Acute F41.1 Osteoarthritis of left hip Acute M16.12 Hot flashes Chronic 04/27/15 R23.2 Tubular adenoma Acute D36.9 Menopausal vaginal dryness Acute N95.1 Medical History Medical History Fracture of right wrist S/P Closed reduction in ER: 07/10/2020 Surgical History Surgical History Varicose veins of both lower extremities H/O eye surgery For right eye strabismus. History of colonoscopy Tobacco Smoking/Tobacco Use Status: Never Passive smoking exposure: Yes Second hand exposure: Yes Alcohol Alcohol Intake: current Alcohol intake frequency: a few times a week Alcohol type: wine Substance Use Substance use: Never Substance use type: does not use Details: alcohol: t-7 Prental History History 2 Para 2 Hx # Term Pregnancies Multiple births Hx # Pregnancies Ectopic pregnancies AB induced Hx Number of Living Children AB spontaneous Vital Signs and Lab Results Vital Signs Most Recent Vital Signs in EMR: Most Recent Vital Signs Temp Pulse Resp BP Pulse Ox 36.4 C L 75 18 150/77 H 98 02/19/24 06:26 02/19/24 06:26 02/19/24 06:26 02/19/24 06:26 02/19/24 06:26 Lab Results Blood Type / Crossmatch: No Data to Display Complete Blood Count: White Blood Count 5.98 10^3/uL (4.4-10.8) 02/07/24 14:47 Red Blood Count 4.64 10^6/uL (3.93-5.22) 02/07/24 14:47 Hemoglobin 14.2 g/dL (11.2-15.7) 02/07/24 14:47 Hematocrit 44.7 % (36.0-46.0) 02/07/24 14:47 Platelet Count 301 10^3/uL (130-400) 02/07/24 14:47 Complete Metabolic Panel: Sodium 138 mmol/L (136-145) 02/07/24 14:47 Potassium 4.1 mmol/L (3.5-5.1) 02/07/24 14:47 Chloride 103 mmol/L (98-107) 02/07/24 14:47 Carbon Dioxide 32.1 mmol/L (21.0-32.0) H 02/07/24 14:47 BUN 11 mg/dL (7-18) 02/07/24 14:47 Creatinine 0.7 mg/dL (0.55-1.02) 02/07/24 14:47 Est GFR (CKD-EPI 2020) 95.92 (mL/min/1.73m2) 02/07/24 14:47 Calcium 9.0 mg/dL (8.5-10.1) 02/07/24 14:47 Glucose 97 mg/dL (74-106) 02/07/24 14:47 Liver Function Panel: No Data to Display Coagulation Panel: No Data to Display Cardiac Panel: No Data to Display Arterial Blood Gas: No Data to Display Venous Blood Gas: No Data to Display Pancreas Panel: No Data to Display Thyroid Panel: No Data to Display Infectious Disease: No Data to Display Blood Cultures: No Data to Display Toxicology Panel: No Data to Display Anesthesia Assessment and Plan Anesthesia History Personal History: No History of Anesthesia Complications Family History: No Family History of Anesthesia Complications Exercise Tolerance Exercise Tolerance: Metabolic Equivalents>4 Pertinent Negatives Pertinent Negatives: No Symptoms of GERD Cardiac & Pulmonary Exam Cardiac Exam: Normal S1/S2 Heart Sounds Pulmonary Exam: Clear Bilateral Breath Sounds Implantable Cardiac Device Does patient have a Pacemaker or an ICD?: No Airway Exam Known Difficult Airway: No Mallampati Class: 2 Mouth Opening: Normal (> 3cm) Thyromental Distance: Greater than 3 cm Neck Range of Motion: Full ROM Neck Circumference: Normal Teeth Condition: Normal Dentition ASA Classification ASA Score: ASA 2 Emergency Case?: No NPO Status NPO Status: NPO Clears >2 hours, Solids >8 hours Anesthesia Plan Resuscitation Status: Full Code Anesthesia Technique: Spinal Anesthesia Airway Planned: Natural Airway Monitors Used: Standard Monitors
--- NOTE | 2024-02-19 07:07 | W.ANESPRE ---
General Info Date of Service Date Performed: 02/19/24 Height: 5 ft 7 in Weight: 73.3 kg Body Mass Index (BMI): 25.2 Surgical Procedure: Operation Date: 02/19/24 07:50 Proposed Procedure Side Surgeon p Hip Total Hip Anterior, ACTIS Left Justo Moody MD Meds Allergies and Home Medications Allergies Allergy/AdvReac Type Severity Reaction Status Date / Time latex Allergy Mild RASH Verified 02/19/24 06:18 nickel AdvReac Intermediate rash Verified 02/19/24 06:19 Home Medication ?Medication ?Instructions ?Recorded calcium carbonate 1,000 mg-vitamin 1 ea PO DAILY 11/27/16 D3 20 mcg (800 unit) tablet omega 9-rds-kav-fish oil 60 mg-90 1 cap PO DAILY 04/25/23 mg-500 mg capsule (Fish Oil) escitalopram oxalate 10 mg tablet 10 mg PO DAILY #90 tabs 09/19/23 diphenhydramine HCl 2 % topical 1 applic topical BID PRN itching 12/24/23 gel (Benadryl) #103 mL magnesium 200 mg tablet 200 mg PO DAILY 12/24/23 Current Visit Medications: Current Medications Generic Name Dose Route Start Last Admin Trade Name Freq PRN Reason Stop Dose Admin Acetaminophen 1,000 mg 02/19/24 06:00 02/19/24 06:35 Acetaminophen 500 Mg Tab PO 02/19/24 23:59 1,000 mg PREOP CARLEE Administration Celecoxib 400 mg 02/19/24 06:00 02/19/24 06:35 Celecoxib 200 Mg Cap PO 02/19/24 23:59 400 mg PREOP CARLEE Administration Ringer's Solution 1,000 mls @ 80 mls/hr 02/19/24 06:00 IV 02/19/24 23:59 INFUSION CARLEE Cefazolin Sodium/Dextrose 2 gm in 50 mls @ 100 mls/hr 02/19/24 06:00 Ancef Duplex IVPB 02/19/24 23:59 PREOP CARLEE Tranexamic Acid/Sodium Chloride 1,000 mg in 100 mls @ 600 mls/hr 02/19/24 06:00 IVPB 02/19/24 23:59 PREOP CARLEE IV Miscellaneous Supplies 1 each 02/19/24 06:00 Iv Access IV 02/19/24 23:59 DIRECTED CARLEE Sodium Chloride 0 ml 02/19/24 06:00 Normal Saline Flush 10 Ml Syr IV 02/19/24 23:59 PRN PRN Sodium Chloride 0 ml 02/19/24 06:00 Normal Saline 10 Ml Vial IJ 02/19/24 23:59 DIRECTED PRN Sterile Water 0 ml 02/19/24 06:00 Water,Injection,Sterile 10 Ml Vial IJ 02/19/24 23:59 DIRECTED PRN PFSH Active Problems Active Problems: Problem Status Onset Code MIKEY (generalized anxiety disorder) Acute F41.1 Osteoarthritis of left hip Acute M16.12 Hot flashes Chronic 04/27/15 R23.2 Tubular adenoma Acute D36.9 Menopausal vaginal dryness Acute N95.1 Medical History Medical History Fracture of right wrist S/P Closed reduction in ER: 07/10/2020 Surgical History Surgical History Varicose veins of both lower extremities H/O eye surgery For right eye strabismus. History of colonoscopy Tobacco Smoking/Tobacco Use Status: Never Passive smoking exposure: Yes Second hand exposure: Yes Alcohol Alcohol Intake: current Alcohol intake frequency: a few times a week Alcohol type: wine Substance Use Substance use: Never Substance use type: does not use Details: alcohol: t-7 Prental History History 2 Para 2 Hx # Term Pregnancies Multiple births Hx # Pregnancies Ectopic pregnancies AB induced Hx Number of Living Children AB spontaneous Vital Signs and Lab Results Vital Signs Most Recent Vital Signs in EMR: Most Recent Vital Signs Temp Pulse Resp BP Pulse Ox 36.4 C L 75 18 150/77 H 98 02/19/24 06:26 02/19/24 06:26 02/19/24 06:26 02/19/24 06:26 02/19/24 06:26 Lab Results Blood Type / Crossmatch: No Data to Display Complete Blood Count: White Blood Count 5.98 10^3/uL (4.4-10.8) 02/07/24 14:47 Red Blood Count 4.64 10^6/uL (3.93-5.22) 02/07/24 14:47 Hemoglobin 14.2 g/dL (11.2-15.7) 02/07/24 14:47 Hematocrit 44.7 % (36.0-46.0) 02/07/24 14:47 Platelet Count 301 10^3/uL (130-400) 02/07/24 14:47 Complete Metabolic Panel: Sodium 138 mmol/L (136-145) 02/07/24 14:47 Potassium 4.1 mmol/L (3.5-5.1) 02/07/24 14:47 Chloride 103 mmol/L (98-107) 02/07/24 14:47 Carbon Dioxide 32.1 mmol/L (21.0-32.0) H 02/07/24 14:47 BUN 11 mg/dL (7-18) 02/07/24 14:47 Creatinine 0.7 mg/dL (0.55-1.02) 02/07/24 14:47 Est GFR (CKD-EPI 2020) 95.92 (mL/min/1.73m2) 02/07/24 14:47 Calcium 9.0 mg/dL (8.5-10.1) 02/07/24 14:47 Glucose 97 mg/dL (74-106) 02/07/24 14:47 Liver Function Panel: No Data to Display Coagulation Panel: No Data to Display Cardiac Panel: No Data to Display Arterial Blood Gas: No Data to Display Venous Blood Gas: No Data to Display Pancreas Panel: No Data to Display Thyroid Panel: No Data to Display Infectious Disease: No Data to Display Blood Cultures: No Data to Display Toxicology Panel: No Data to Display Anesthesia Assessment and Plan Anesthesia History Personal History: No History of Anesthesia Complications Family History: No Family History of Anesthesia Complications Exercise Tolerance Exercise Tolerance: Metabolic Equivalents>4 Implantable Cardiac Device Does patient have a Pacemaker or an ICD?: No Airway Exam Known Difficult Airway: No Mallampati Class: 2 Mouth Opening: Normal (> 3cm) Thyromental Distance: Greater than 3 cm Neck Range of Motion: Full ROM Neck Circumference: Normal Teeth Condition: Normal Dentition
[2024-02-19] MEDS: Lactated Ringers 1,000 ML 80 ML IV (07:15)
--- NOTE | 2024-02-19 07:17 | W.PM.DS.N ---
Date of service: 02/19/24 Time of Service: 07:27 Discharge Plan Disposition Patient Disposition: Home Condition: Good Discharge Details Reason For Visit: Left hip DJD Attending Provider: Justo Moody Primary Care Provider: Tegan Jacobs Home Meds and New Rx's Prescriptions: New celecoxib [Celebrex] 200 mg capsule 200 mg PO BID PRNQty: 60 0RF Rx Instructions: Take one tablet twice daily for pain and inflammation aspirin 81 mg tablet,delayed release (DR/EC) 81 mg PO BID 30 Days Qty: 60 0RF acetaminophen 500 mg tablet 1,000 mg PO Q8H PRN Qty: 90 0RF Rx Instructions: Take two tablets up to every 8 hours as needed for pain pantoprazole 40 mg tablet,delayed release (DR/EC) 40 mg PO DAILY Qty: 14 0RF dexamethasone 4 mg tablet 4 mg PO DAILY Qty: 2 0RF Rx Instructions: Take one tablet once daily for two days docusate sodium [Colace] 100 mg capsule 100 mg PO BID Qty: 30 0RF gabapentin 300 mg capsule 300 mg PO QHS Qty: 14 0RF Rx Instructions: Take one tablet at bedtime oxycodone 5 mg tablet 5 mg PO Q6H PRNQty: 12 0RF Rx Instructions: Take one tablet up to every 6 hours as needed for severe postoperative pain Continued magnesium 200 mg tablet 200 mg PO DAILY Benadryl 2 % gel 1 applic topical BID PRN (Reason: itching) Qty: 103 0RF omega 8-hjz-rxv-fish oil [Fish Oil] 60-90-500 mg capsule 1 cap PO DAILY calcium carbonate-vitamin D3 1 EACH tablet 1 ea PO DAILY escitalopram oxalate 10 mg tablet 10 mg PO DAILY Qty: 90 3RF Discharge Instructions Additional Instructions: Total Hip Discharge Instructions Activity: The most important activity is to walk. You should try to take short walks a few times a day. You have no restrictions on movement or positioning, but do not try to force what you do. You will find some stiffness and weakness with hip flexion (lifting your knee). Do not try to strengthen this too early, continue to practice walking and stairs and this will come. - Outpatient physical therapy can be helpful to help return you to a normal gait and improve your flexibility and strength. This can start around 2 weeks. For some patients, it?s not necessary. Usually this is determined at the time of discharge or at the first post-operative visit. - You should wear the SULTANA hose on both legs for 2 weeks. Dressing: Keep the surgical dressing in place for at least one week. After the first week it may be removed and replace with light gauze and tape or nothing. It may get wet after 3 days but avoid soaking the dressing. If it gets wet, just lightly pat dry. It is important to always keep some gauze between skin folds, especially when you are sitting. Spend some time with the wound exposed when you are lying flat as the incision does wrinkle onto itself. Medications: - You should take Tylenol and an anti-inflammatory Celebrex as your primary pain control medications. If the Celebrex is too expensive or not covered, please call the office for another alternative (Advil/Ibuprofen or Naproxen/Aleve). - You have been prescribed a stronger pain medication Oxycodone for breakthrough pain, take as needed as prescribed. - You have also been prescribed a stomach acid reduction agent Pantoprozole to help reduce stomach acid and reflux. - You have also been prescribed Decadron to help with post-operative nausea and pain. You will take this for two days starting tomorrow. - You will be taking Aspirin 81mg twice a day for DVT prevention unless instructed otherwise. - If you have constipation you should take Colace (which has been prescribed) or Miralax (which is available [id number]). It takes most people 3-4 days to have a bowel movement. Follow-up: 2 weeks If you have any acute concerns or questions, please do not hesitate to contact the office at [phone]. You may contact Dr. Moody with any questions after hours through the hospital at [phone] or on his cell phone at [phone]. Stand Alone Forms: Anesthesia Discharge Inst., Ethan Holliday (U) Referrals: Justo Moody MD [ [facility] STAFF PHYSICIAN] - Equipment/Supplies: Walker Activity:: Elevate Remove Dressings/Wound Care:: Do Not Remove Shower/Bathe:: Cover Diet:: As Tolerated Discharge Orders Discharge Orders: Discharge Order (Routine); Ordered 02/19/24 Ordered By: Ludy Will Discharge Data Discharge Date/Time-TO BE ENTERED AT DEPARTURE: 02/19/24 12:12 DS: Summary Time Spent with Patient providing and/or coordinating discharge services: Less than 30 minutes Status at Discharge Functional status at discharge: uses cane/walker Overall status at discharge: patient is back to baseline Mental Status: mental status grossly normal Speech and Movement: speech and movement normal Mood: congruent mood Affect: normal affect Quality:SDOH Health Related Social Needs: No Data to Display Exam Psych Mental Status: mental status grossly normal Speech and Movement: speech and movement normal Mood: congruent mood Affect: normal affect DS: Data Vitals/I&O Vitals and I&O: Vital Signs Temperature 97.5 F L 02/19/24 06:26 Pulse 75 02/19/24 06:26 Pulse Rhythm Regular 02/19/24 06:26 Respiratory Rate 18 02/19/24 06:26 Respiratory Depth Normal 02/19/24 06:26 Blood Pressure 150/77 H 02/19/24 06:26 Pulse Oximetry 98 02/19/24 06:26 Oxygen Delivery Method Room Air 02/19/24 06:26 Oxygen Flow Rate 0 02/19/24 06:26 Pain Level 6 02/19/24 06:26 Intake & Output 02/18/24 02/18/24 02/19/24 11:59 23:59 11:59 Weight 161 lb 9.581 oz PFSH All Active Problems History of total left hip arthroplasty (Acute 02/19/24) MIKEY (generalized anxiety disorder) (Acute) improved with escitalopram Osteoarthritis of left hip (Acute) POCUS INJECTION: 11/05/2023 Hot flashes (Chronic 04/27/15) HRT x Tubular adenoma (Acute) colonoscopy 2019/ Menopausal vaginal dryness (Acute) Medical History Fracture of right wrist S/P Closed reduction in ER: 07/10/2020 Surgical History Varicose veins of both lower extremities H/O eye surgery For right eye strabismus. History of colonoscopy Family History Mother , 94 No problems noted. Father , 100 Essential hypertension Sister Essential hypertension Depression Brother Cancer Brother , 35 No problems noted. Maternal Grandfather , OLD AGE at age 75. No problems noted. Paternal Grandfather Heart disease Maternal Grandmother No problems noted. Paternal Grandmother Heart disease Son No problems noted. Daughter No problems noted. 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 Pets and animals: Yes Pets and animals: dog(s) Sexually active: Yes Do you think of yourself as: straight/heterosexual Current gender identity: female What is your relationship status?: How often do you talk on the phone with friends or family?: three or more times per week How often do you get together with friends or relatives?: three or more times per week How often do you attend voodoo or jehovah's witness services?: 1-3 times per year Do you belong to any clubs or organized social groups?: yes Panel score (0-1 are the most socially isolated patients): 3 What type of physical activity do you participate in: running Duration: 45-60 minutes/day Frequency: 3-4 times per week [place]/Presybeterian: L[employer] Day Special [place] needs: No Seatbelt use: always Helmet use: Yes Helmet use: always Drive intox or ride w/intox truck driver helper: No Do you feel safe at home: Yes Do you feel safe in your relationship?: Yes Additional Social history: UTAP History History 2 Para 2 Hx # Term Pregnancies Multiple births Hx # Pregnancies Ectopic pregnancies AB induced Hx Number of Living Children AB spontaneous Time Spent with Patient Time Spent with Patient: 45-69 minutes Time was spent: obtaining and/or reviewing separately otained hiistory, ordering medications,tests, procedures and counseling the patient
[2024-02-19] MEDS: ceFAZolin 2 GM/50 ML BAG IVPB (07:40)
[2024-02-19] MEDS: TRANEXAMIC ACID/SOD. CHL. 1,000 MG/100 ML BAG 600 MG IVPB (07:44)
--- NOTE | 2024-02-19 08:57 | DI.RAD_ITS ---
Exam(s) XR HIP LT IN OR EXAM: XR HIP LT IN OR CLINICAL HISTORY: Osteoarthritis of left hip. TECHNIQUE: 2D digital imaging was performed. COMPARISON: No exams were available for comparison FINDINGS: Fluoroscopy provided during left hip arthroplasty. See procedure report for details. Total fluoroscopy time 21 seconds IMPRESSION: Radiation exposure index/cumulative dose: Catrinar= 2.2207 mGy DATA REPOSITORY: RADIATION DOSE DELIVERED:
--- NOTE | 2024-02-19 09:08 | W.PM.OP ---
Date of service: 02/19/24 Time of Service: 07:45 Operative Note Operative Note DATE OF PROCEDURE: 02/19/24 PRE-OP DIAGNOSIS: Left Hip Osteoarthritis POST-OP DIAGNOSIS: same PROCEDURE: Left Anterior Total Hip Arthroplasty with Intraoperative Navigation SURGEON: Justo Moody [employer] SALESPERSON: Ludy Will ANESTHESIA TYPE: Spinal Refer to Anesthesia Record ESTIMATED BLOOD LOSS: 100 PATHOLOGY: none sent TOURNIQUET TIME: 0 COMPLICATIONS: None Patient was transported to: PACU Patient's condition: stable Implants: 1. Depuy Alden Acetabular Component, 50mm 2. Depuy Acetabular Liner, [id number] 3. Depuy Actis Standard Collared Femoral Stem, Size 3 4. Depuy Altrx Ceramic Femoral Head, Size 32+5mm Indications: I have seen Bee in clinic for symptoms of hip arthritis, confirmed with radiographic findings. She has exhausted nonoperative methods and was having significant limitations in daily function and desired better function and less pain. I discussed the technical details of a hip replacement. I explained the risks of the procedure to include, but not limited to, bleeding, infection, pain, stiffness, fracture, damage to nerves and vessels, damage to muscles and tendons, loosening, instability, leg length inequality, need for repeat procedure, blood clot and cardiopulmonary demise. Despite these risks, Bee elected to proceed. Findings: There was significant signs of arthritis throughout the hip with notable synovitis. Procedure Description: Bee was greeted in the preoperative holding area where the correct side was identified and marked. The consent was reviewed with the patient and signed. The history and physical was updated. All questions were answered. She was taken back to the operating room. A spinal anesthestic was then administered. The feet were wrapped with cast padding and Coban and then placed into the boot liners and then into the boots. Care was taken to protect the skin and make sure the heels were fully down and the boots were stable. The patient was then positioned onto the HANA table. Both legs were held in a neutral position. SCDs were applied. The patient was then slid down onto a peroneal post. Prophylactic antibiotics in the form of Cefazolin were administered. 1g of Tranxemic Acid was given intravenously within 30 minutes of incision. The left leg was then prepped with Chloraprep and draped in a standard fashion. A second prep with Chloraprep was performed prior to placement of a shower-curtain type drape with Iodine impregnated skin protection. A timeout to confirm correct identity, side and site, procedure, allergies, anesthesia, and medical concerns was performed. An obliquely oriented incision was made starting lateral to the ASIS and running distal over the Tensor Fascia Bhavya (TFL) muscle belly toward the fibular head, approximately 10cm. The skin and soft tissue was dissected sharply, through Parisa?s fascia, and to the fascia of the TFL. With the fascia and superior border of the IT band identified, the fascia was incised with a new knife just above any perforators from the IT band. The TFL muscle belly was bluntly dissected away from the fascia and moved laterally. The fat between TFL and rectus was identified to ensure the dissection was not within the TFL. Blunt dissection created space between abductors and the capsule and retractor was placed over the lateral femoral neck. The fibers of the rectus femoris tendon were identified and these were freed from the anterior capsule. A second cobra retractor was placed around the medial femoral neck. The TFL was further retracted laterally to show the deep fascia. Careful dissection through this layer identified three main crossing vessels of the lateral femoral circumflex. These were cauterized in multiple locations and then cut without any noticeable bleeding. The TFL was further released bluntly from the deep fascia to expose anterior hip capsule and fat The soft tissue orthopaedic retractor was then placed beneath the TFL and against sartorius and medial soft tissues to protect and retract the soft tissues. A T-capsulotomy was then performed starting at the superior lateral acetabulum and moving distally to the intertrochanteric ridge. These capsular flaps were tagged with a No. 1 Ethibond and elevated from within. The capsular flaps were released to the shoulder of the lateral neck and to the lesser trochanter to give excellent visualization of the proximal femur. A neck osteotomy was performed using an oscillating saw based on preoperative templates. This cut started in the shoulder and of the lateral neck and exited medially. The saw was at all times directed medially to avoid injury to the greater trochanter. Gross traction was applied to the leg and the osteotomy opened. The femoral head was removed with a corkscrew, making sure to protect the TFL on its exit. Traction was released after head removal. This was measured on the back table to determine the starting reamer size. Portions of the rectus obscuring visualization were minimally elevated off the superior acetabulum. An anterior retractor was placed over the anterior wall between capsule and labrum and attached to the Gripper retraction system. The femur was rotated to 90 degrees and medial capsule was fully released until the lesser trochanter was palpable and visible; the femur was returned to 30 degrees. A posterior retractor was placed similarly between capsule and labrum. This provided excellent visualization. The contents of the cotyloid fossa were removed with electrocautery and the labrum was removed with a knife. There was a notable floor osteophyte. There was significant chondromalacia of the superior acetabulum. Acetabular reaming began with a 46mm reamer. This first reaming was directed anterior to posterior and medial to get down to the true floor. This was inspected and reamed until the true floor was reached. The anterior retractor was then released and entry and exit was provided by traction on the capsular flaps. I then reamed sequentially up to a 50mm reamer where good fit was obtained. The larger reamers were oriented based on anatomical reference of the anterior and lateral perera to ensure proper abduction and anteversion. Positioning and size was confirmed with the fluoroscopy. A 50mm Depuy Alden acetabular component was selected. The acetabulum was reamed around the periphery with the selected acetabular size to prevent a rim fit. The deep tissues were irrigated. The acetabular component was then impacted in a position of about 40-45 degrees of abduction and 15-20 degrees of anteversion, using the patient?s anatomy as the ultimate landmark. Fluoroscopy was used to confirm this. There was excellent golf club head inspector and adjuster of the acetabular component and the inserting handle was removed. The acetabular liner, Depuy [id number] polyethylene liner, was inserted and lined up with the tines of the acetabular component. There was no soft tissue interposition. The liner was then impacted into position and confirmed to be well-seated. A portion of the marian-articular cocktail was then injected around the acetabulum into the capsule and periosteum. This cocktail consisted of 123mg of Ropivacaine, 0.25mg of Epinephrine, 0.04mg of Clonidine, and 15mg of Ketorolac, diluted to 50cc. The leg was rotated to 120 degrees. Any remaining medial capsule was released until the lesser trochanter was easily palpable. A retractor was placed medially. The lateral capsule was further released into the shoulder to allow access to the greater trochanter. A Kuhn retractor was placed over the greater trochanter which allowed the trochanter to flip in front of the capsule for excellent exposure. The leg was brought down into maximal extension and 20 degrees of adduction while ensuring there was no impingement on the acetabulum. Any remnant capsule within the trochanter was released. Piriformis and obturator externis were identified and protected. There was excellent access to the proximal femur. The lateral neck remnant was removed with a rongeur. A blunt canal probe was used to identify the canal and trajectory for later broaching. A box osteotome initiated the broach course. A small curved rasp and a curved curette were used to work laterally. Broaching then began with a starter Actis broach. This was inserted manually around the trochanter and into the canal before mallet blows. The broach was seated to a few millimeters below the cut level based on the neck cut and the preoperative template. Sequential broaching was continued with the ActivityHerose pneumatic broaching device until a tight fit was obtained with good rotational control of the femur. A trial standard neck was inserted along with a +5 trial head. The leg was brought out of extension and adduction and then reduced with traction and internal rotation. The leg was stable anteriorly in a position of 30 degrees of extension and 90 degrees of external rotation. Fluoroscopy was used to ensure there was no fracture and the stem was seated well. Leg lengths were checked with an AP pelvis and pelvic reference points. Proofpoint navigation system was used to confirm appropriate positioning and leg length and offset. The offset was accurately recreated but there was still too much leg length, so the broach was advanced accordingly. Once content with the desired offset and leg lengths, the leg was brought back into extension, external rotation and adduction. The periosteum and surrounding tissue was injected with remaining portion of the marian-articular cocktail. The proximal femur was irrigated as well as the deep tissues. The EeBria Actis standard collared stem, size 3, was then manually inserted into the proximal femur making sure to control rotation. It was then malleted into position with light blows, giving breaks to allow bone expansion and decrease risk of fracture. The selected Depuy Altrx Ceramic Head, size 32+5mm, was then placed onto the clean and dry trunnion and secured with impaction onto the tapered fit. The leg was brought back out of extension and adduction and reduced with traction and internal rotation. Stability was confirmed with no shuck at 90 degrees of external rotation and 30 degrees of extension. No impingement through range of motion arc. The indirect head of the rectus femoris was repaired with a #1 Vicryl. Final x-ray images were obtained with fluoroscopy to confirm adequate positioning and no intraoperative fracture. The deep tissues were thoroughly irrigated with Surgiphor, betadine solution. This was allowed to sit in the wound for 3 minutes before being thoroughly irrigated out with normal saline. The capsule was then reapproximated with the previously placed Ethibond sutures. The TFL fascia was finally closed with a No. 2 Stratafix, barbed suture. Deep tissues were then reapproximated with 0 Vicryl and a running 2-0 Vicryl. The skin was closed with a running 4-0 Monocryl in a subcuticular fashion. This was reinforced with skin glue. A Mepilex silver dressing was applied. At the end of the case, all counts were correct. eBe was transferred to the hospital bed without difficulty and suffering no apparent complication. Bee has a good prognosis. Physical therapy will start today and without restrictions, weight-bearing as tolerated. Aspirin 81mg BID will be used for DVT prophylaxis.
--- NOTE | 2024-02-19 12:02 | PT.INIE ---
PT Notes Visit Reasons: Left hip DJD Physical Therapy Day Surgery Initial Evaluation Date: 02-19-2024 Referring Doctor: Dr. Moody PT Orders: PT CONSULT: PT eval status post Ortho surgery Precautions: Weightbearing as tolerated left lower extremity Patient Profile/Admitting Diagnosis: Patient is 63-year-old female presenting status post elective left total hip arthroplasty secondary to DJD and OA. Postop uncomplicated PMHX: OA left hip, generalized anxiety disorder, tubular adenoma Social History/Home Situation: Patient resides at home with her in single-family house with 4 steps to enter with bilateral rails. Patient reports she has a shower stall with a built-in seat standard height toilet. Patient reports her bed is low approximately 17 inches. 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 Patient independent with ambulation, ADLs, cooking, cleaning, driving, shopping and medication. Patient independent with iADLs. Her is able to assist with tasks as needed Equipment Owned/DME: Patient has no DME at home. She was issued and fitted for a FWW prior to discharge Subjective: Patient reported pain 6-7 however declined any further pain medication when offered.(Nurse aware) Objective: [] General Observation: alert female seated upright IV noted to dorsum right hand. Mental Status: Alert and oriented x 4 Pain: 6-7/10 left thigh lateral knee to hip burning sensation ROM: Right Upper Extremity: WNL Left Upper Extremity: WNL Right Lower Extremity: WNL Left Lower Extremity: Hip flexion to 98, abduction 15 degrees, knee and ankle WNL Strength: Right Upper Extremity:5/5 Left Upper Extremity: 5/5 Right Lower Extremity: 5/5 Left Lower Extremity:hip flexion 3/5, abduction 3-/5, extension 3-/5, knee 3+/5, ankle 3+/5 Sensation: intact light touch proprioception and kinesthetic awareness Bed Mobility/Transfers: Supine to sitsupervision with increased time sit to supine CGA with increased time to get LLE into bed Sit to stand independent Stand to sit independent Bed to chair supervision with FWW Gait: ambulate with FWW with supervision 160 feet with reciprocal pattern including turns and through doorways Stairs 4 steps with 2 rails step to pattern supervision Balance: Static Sitting: Normal Dynamic Sitting: good Static Standing: Good + without UE support Dynamic Standing: Good with 1 UE support Special Tests: [] Mobility Limitations Standardized Measure [] [facility] AM-PAC 6 clicks Basic Mobility Inpatient Short Form: [] Raw Score: 22 CMS Score: 20.91% Informed Consent/Education: Patient instructed in purpose of PT consult. Packet containing THAexercise protocol has been given to patient. Education and training on initial set of exercises that can be done at home have been completed with patient as well as Selfcare/ dressing technique and stair training with present. Assessment: Patient presents with clinical signs and symptoms consistent with current/admitting diagnoses that have resulted to mobility limitations, gait instability, generalized weakness, and impairment of motor control as demonstrated by the following impairment level findings: 1. Decreased strength to left hip major muscle groups 2. Impaired standing balance 3. Limitation of joint range of motion in left hip Impairments are contributing to the following functional limitations: 1. Inability to safely ambulate without assistive device 2. Increase completion time for mobility ADL performance 3. Increased fall risk Patient is assessed as alow complexity based on the following: History: 63-year-old female with impairment level findings, functional limitations, and past medical history as indicated above Examination: Demonstrable impairment in strength, balance, and mobility level with underlying impairments and functional limitations as documented above Presentation: stable Decision Making: low Goals: N/A. Plan of Care/Treatment Plan: N/A. DISCHARGE RECOMMENDATIONS: Home with HEP and outpatient PT as indicated after surgical follow up with Dr Moody TREATMENT CODE/TIME: 03985 x 17 mins for 1 unit ; 99786 x 14 mins for 1 unit/ [id number] Thank you for the opportunity to participate in the care of this patient. Please sign an return this page within 30 days if you agree with the above POC. Thank you! Physician Signature Date [facility]
[2024-02-19] MEDS: oxyCODONE 5 MG TAB PO (12:04)
--- NOTE | 2024-02-19 12:28 | W.ANESPOSTOP ---
Postoperative Evaluation Date, Time and Location Date Performed: 02/19/24 Time Performed: 12:02 Patient Location: Day Surgery Unit Vital Signs Most Recent Imported Vital Signs: Most Recent Vital Signs Temp Pulse Resp BP Pulse Ox 36.4 C L 71 17 142/79 H 98 02/19/24 11:20 02/19/24 11:20 02/19/24 11:20 02/19/24 11:20 02/19/24 11:20 Pain Score Most Recent Pain Score: Most Recent Pain Score Pain Level 2 02/19/24 10:26 Assessment Mental Status: Awake (Alert & Oriented to Patient Baseline) Airway and Respiratory Function: Patent airway with normal (patient baseline) respiratory exam Cardiovascular Function: Hemodynamically Stable Hydration Status: Adequately Hydrated Nausea & Vomiting: No Nausea or Vomiting Pain: Pt. Denies Any Pain Peripheral Nerve Block: Patient did not receive a nerve block Postoperative Comments:: Patient sitting in chair, expressed comfort, no questions at this time.
== END 2024-02-19 12:12 | disposition home or self-care (01) ==
PROVIDERS: PCP Family Medicine; Visit Provider Student in an Organized Health Care Education/Training Program
PROC: (CPT 27130; principal; 2024-02-19 07:30)
DX: M16.12 Unilateral primary osteoarthritis, left hip (principal); F41.1 Generalized anxiety disorder; I83.93 Asymptomatic varicose veins of bilateral lower extremities
CPT/HCPCS: 27130; 20985; C1776; 97161; 97530; 73501; J0690; J1100; J2003; J2250; J2371; J2401; J2405; J2704

== ENCOUNTER 2024-03-03 15:44 | Outpatient (CLI) | payer MEDICARE, SELFPAY ==
--- NOTE | 2024-03-03 13:45 | DI.RAD_ITS ---
Exam(s) XR HIP LT COMPLETE AP PELVIS EXAM: XR HIP LT COMPLETE AP PELVIS CLINICAL HISTORY: 1ST POST OP L JAG. TECHNIQUE: 2D digital imaging was performed. Two images were obtained. AP pelvis and lateral left h ip views were obtained. COMPARISON: CR XR PELVIS AP from 12/17/2023 XA XR HIP LT IN OR from 02/19/2024 FINDINGS: BONES: There are stable post operative changes of a left total hip replacement present. No fracture or dislocation. JOINTS: The orthopedic hardware is in good position. No evidence of hardware loosening. SOFT TISSUE: Normal. IMPRESSION: Stable left total hip replacement. DATA REPOSITORY: RADIATION DOSE DELIVERED:
== END 2024-03-03 15:45 | disposition home or self-care (01) ==
LOC: DIORS 15:44
PROVIDERS: PCP Family Medicine; Referring Provider Family Medicine; Visit Provider Student in an Organized Health Care Education/Training Program
DX: Z96.642 Presence of left artificial hip joint (principal); Z47.1 Aftercare following joint replacement surgery
CPT/HCPCS: 99024; 73502

== ENCOUNTER → 2024-04-03 13:39 | Outpatient (BNVA) | payer MEDICARE, SELFPAY | PROVIDERS: PCP Family Medicine; Referring Provider Family Medicine; Visit Provider Student in an Organized Health Care Education/Training Program | DX: Z47.1 Aftercare following joint replacement surgery (principal); M76.892 Other specified enthesopathies of left lower limb, excluding foot; Z96.642 Presence of left artificial hip joint | CPT/HCPCS: 99024 ==

== ENCOUNTER → 2024-06-16 09:26 | Outpatient (BNVA) | payer MEDICARE, SELFPAY | PROVIDERS: PCP Family Medicine; Referring Provider Family Medicine; Visit Provider Student in an Organized Health Care Education/Training Program | DX: M76.892 Other specified enthesopathies of left lower limb, excluding foot (principal); Z96.642 Presence of left artificial hip joint | CPT/HCPCS: 99213 ==

== ENCOUNTER 2025-01-08 03:03 | Outpatient (CLI) | payer MEDICARE, SELFPAY ==
--- NOTE | 2025-01-08 05:30 | DI.MAMMO_ITS ---
Exam(s) MAMMO SCREENING EXAM: MAMMO SCREENING CLINICAL HISTORY: screening,z12.39 TECHNIQUE: Bilateral full field digital CC and MLO mammographic images were obtained with 3D tomosynthesis and utilizing computer aided detection (CAD). COMPARISON: Comparison is made with prior examinations. FINDINGS: Masses/Architectural Distortion: No suspicious masses or areas of architectural distortion are present. Microcalcifications: No suspicious pleomorphic-type are seen. Skin Thickening/Nipple Retraction: None. IMPRESSION: 1. No significant interval change with no specific features of malignancy noted. 2. Unless there is more urgent need, screening mammography is recommended, as per [place] [employer] guidelines. BI-RADS Category 1 - Negative Breast Density - Category B - There are scattered areas of fibroglandular density. Breast density Category C or D implies that the patient has dense breast tissue. Dense breast tissue can make it harder to find cancer on a mammogram. Dense breast tissue is also associated with an increased risk of breast cancer. This information about the result of the mammogram report was provided to the patient to raise their awareness. Use this report when you speak with the patient about their risks for breast cancer, which includes their family history. At that time, you may recommend additional screening tests (Ultrasound or MRI) as these tests may add significant information. A negative radiographic report should not delay biopsy if a dominant or clinically suspicious mass is present. Up to ten percent of cancers are not identified on mammography. A negative report may reinforce clinical impression. Adenosis and dense breasts may obscure an underlying neoplasm. False positive reports average 6 to 10%. Patient will receive a letter notifying them of these results.
--- NOTE | 2025-01-08 05:30 | DI.DEXA_ITS ---
Exam(s) XR DEXA BONE DENSITY W/WO BRYAN EXAM: XR DEXA BONE DENSITY W/WO BRYAN CLINICAL HISTORY: Screening,menopausal disorder, N95.9 TECHNIQUE: COMPARISON: No exams were available for comparison FINDINGS: Lateral Spine Image: Unremarkable. No compression deformities identified. Right hip: Total T-Score: 0.2 Total Z-Score: 1.5 T- and Z-scores: Within normal limits. Lumbar Spine: Total T-Score: -0.5 Total Z-Score: 1.3 T- and Z-scores: Within normal limits. IMPRESSION: No evidence of osteoporosis.
== END 2025-01-08 03:23 ==
LOC: DI 03:03
PROVIDERS: PCP Family Medicine; Visit Provider Family Medicine
DX: Z12.31 Encounter for screening mammogram for malignant neoplasm of breast (principal); N95.9 Unspecified menopausal and perimenopausal disorder
CPT/HCPCS: 77063; 77067; 77080

== ENCOUNTER → 2025-01-29 08:44 | Outpatient (BNVA) | payer MEDICARE, SELFPAY | PROVIDERS: PCP Family Medicine; Referring Provider Family Medicine; Visit Provider Physical Therapy Assistant | DX: Z12.11 Encounter for screening for malignant neoplasm of colon (principal); Z86.0101 Personal history of adenomatous and serrated colon polyps | CPT/HCPCS: S0285 ==

== ENCOUNTER 2025-02-11 09:41 | Day surgery (SDC) | payer MEDICARE, SELFPAY ==
[2025-02-11 10:15] VITALS: BP 135/89; PULSE 66; RESP 16; TEMP 36.9; O2SAT 98
[2025-02-11] MEDS: Lactated Ringers 1,000 ML 80 ML IV (10:38)
--- NOTE | 2025-02-11 11:26 | W.ANESPRE ---
General Info Date of Service Date Performed: 02/11/25 Height: 5 ft 6.5 in Weight: 74.4 kg Body Mass Index (BMI): 26.0 Surgical Procedure: Operation Date: 02/11/25 12:35 Proposed Procedure Side Surgeon p Colonoscopy Danette Galicia MD Actual Procedure Side Surgeon p Colonoscopy Not Applicable Danette Galicia MD Meds Allergies and Home Medications Allergies Allergy/AdvReac Type Severity Reaction Status Date / Time latex Allergy Mild RASH Verified 02/11/25 10:12 nickel AdvReac Intermediate rash Verified 02/11/25 10:12 Home Medication ?Medication ?Instructions ?Recorded calcium 1,000 mg (as 1 ea PO DAILY 11/27/16 carbonate)-vitamin D3 20 mcg (800 unit) tablet omega 7-qcz-xrp-fish oil 60 mg-90 1 cap PO DAILY 04/25/23 mg-500 mg capsule (Fish Oil) Held on 02/09/25. Instructions: Pt Stopped/Never Started magnesium 200 mg tablet 200 mg PO DAILY 12/24/23 bisacodyl 5 mg tablet,delayed 5 mg PO ONCE #4 tabs 01/29/25 release (Dulcolax (bisacodyl)) escitalopram oxalate 10 mg tablet 10 mg PO DAILY 01/29/25 polyethylene glycol 3350 17 17 g PO ONCE #238 grams 01/29/25 gram/dose oral powder Current Visit Medications: Current Medications Generic Name Dose Route Start Last Admin Trade Name Freq PRN Reason Stop Dose Admin Ringer's Solution 1,000 mls @ 80 mls/hr 02/11/25 06:00 02/11/25 10:38 IV 02/11/25 23:59 80 mls/hr INFUSION CARLEE Administration IV Miscellaneous Supplies 1 each 02/11/25 06:00 Iv Access IV 02/11/25 23:59 DIRECTED CARLEE Sodium Chloride 0 ml 02/11/25 06:00 Normal Saline Flush 10 Ml Syr IV 02/11/25 23:59 PRN PRN Sodium Chloride 0 ml 02/11/25 06:00 Normal Saline 10 Ml Vial IJ 02/11/25 23:59 DIRECTED PRN Sterile Water 0 ml 02/11/25 06:00 Water,Injection,Sterile 10 Ml Vial IJ 02/11/25 23:59 DIRECTED PRN PFSH Active Problems Active Problems: Problem Status Onset Code Chronic right shoulder pain Chronic M25.511, G89.29 MIKEY (generalized anxiety disorder) Chronic F41.1 Hot flashes Chronic 04/27/15 R23.2 Tubular adenoma Acute D36.9 Menopausal vaginal dryness Acute N95.1 Medical History Medical History Osteoarthritis of left hip POCUS INJECTION: 11/05/2023 Fracture of right wrist S/P Closed reduction in ER: 07/10/2020 Surgical History Surgical History History of total left hip arthroplasty (02/19/24) Varicose veins of both lower extremities H/O eye surgery For right eye strabismus. History of colonoscopy Tobacco Smoking/Tobacco Use Status: Never Passive smoking exposure: No Second hand exposure: Yes Alcohol Alcohol Intake: current Alcohol intake frequency: a few times a week Alcohol type: wine Substance Use Substance use: Never Substance use type: does not use Details: alcohol: t-7 Prental History History 2 Para 2 Hx # Term Pregnancies Multiple births Hx # Pregnancies Ectopic pregnancies AB induced Hx Number of Living Children AB spontaneous Vital Signs and Lab Results Vital Signs Most Recent Vital Signs in EMR: Most Recent Vital Signs Temp Pulse Resp BP Pulse Ox 36.9 C 66 16 135/89 98 02/11/25 10:15 02/11/25 10:15 02/11/25 10:15 02/11/25 10:15 02/11/25 10:15 Anesthesia Assessment and Plan Anesthesia History Personal History: No History of Anesthesia Complications Family History: No Family History of Anesthesia Complications Exercise Tolerance Exercise Tolerance: Metabolic Equivalents>4 Pertinent Negatives Pertinent Negatives: No Symptoms of GERD, No Major Cardiovascular Symptoms or Complaints and No Major Pulmonary Symptoms or Complaints Cardiac & Pulmonary Exam Cardiac Exam: Normal S1/S2 Heart Sounds Pulmonary Exam: Clear Bilateral Breath Sounds Implantable Cardiac Device Does patient have a Pacemaker or an ICD?: No Airway Exam Known Difficult Airway: No Mallampati Class: 2 Mouth Opening: Normal (> 3cm) Thyromental Distance: Greater than 3 cm Neck Range of Motion: Full ROM Neck Circumference: Normal Teeth Condition: Normal Dentition ASA Classification ASA Score: ASA 2 Emergency Case?: No NPO Status NPO Status: NPO Clears >2 hours, Solids >8 hours Anesthesia Plan Resuscitation Status: Full Code Anesthesia Technique: General Anesthesia Airway Planned: Natural Airway Monitors Used: Standard Monitors
[2025-02-11 11:27] VITALS: BMI 26.0
[2025-02-11 12:05] VITALS: BP 119/75; PULSE 66; RESP 16; TEMP 36; O2SAT 99
--- NOTE | 2025-02-11 12:09 | W.COLOREPORT ---
Date of service: 02/11/25 Time of Service: 12:09 Colonoscopy Report Date of procedure: 02/11/25 Pre-op diagnosis general: History of colon polyps Post-op diagnosis procedure note: same Procedure: Colonoscopy Surgeon: Danette Galicia Anesthesia Type: General:No Airway Estimated blood loss (mL): 1 Pathology: none sent Complications: None Disposition: PACU Indications: Patient is a 64-year-old female who presents for surveillance colonoscopy. She has had a history of polyps on recent colonoscopy in 2019. Prep: Miralax/Dulcolax Procedure Start Time: 11:45 Procedure End Time: 11:58 Retraction Time: 8 Findings: Normal colonoscopy. Procedure Description: Informed consent was obtained. The patient was taken to the endoscopy suite and placed in the left lateral decubitus position. After adequate intravenous sedation, digital rectal exam was performed, which was normal. A colonoscope was inserted into the rectum and easily negotiated to the cecum. The ileocecal valve and appendiceal orifice were identified. The entire colonic mucosa was then carefully circumferentially inspected upon slow withdrawal of the scope. The cecum, ascending, transverse, and descending colon were all normal. Retroflexion in the rectum was unremarkable. The patient tolerated the procedure well with no complications. Postoperatively, the patient was transferred to the recovery room in stable condition. [place] Bowel Prep [place] Bowel Prep Right Colon: 3 Left Colon: 3 Transverse Colon: 3 Total Score: 9
[2025-02-11 12:24] VITALS: BP 130/85; PULSE 71; RESP 16; TEMP 36; O2SAT 98
--- NOTE | 2025-02-11 12:27 | W.ANESPOSTOP ---
Postoperative Evaluation Date, Time and Location Date Performed: 02/11/25 Time Performed: 12:24 Patient Location: Day Surgery Unit Vital Signs Most Recent Imported Vital Signs: Most Recent Vital Signs Temp Pulse Resp BP Pulse Ox 36 C L 71 16 130/85 98 02/11/25 12:24 02/11/25 12:24 02/11/25 12:24 02/11/25 12:24 02/11/25 12:24 Pain Score Most Recent Pain Score: Most Recent Pain Score Pain Level 0 02/11/25 12:24 Assessment Mental Status: Awake (Alert & Oriented to Patient Baseline) Airway and Respiratory Function: Patent airway with normal (patient baseline) respiratory exam Cardiovascular Function: Hemodynamically Stable Hydration Status: Adequately Hydrated Nausea & Vomiting: No Nausea or Vomiting Pain: Pt. Denies Any Pain Peripheral Nerve Block: Patient did not receive a nerve block
== END 2025-02-11 13:05 | disposition home or self-care (01) ==
PROVIDERS: PCP Family Medicine; Visit Provider Student in an Organized Health Care Education/Training Program
PROC: 0DJD8ZZ Inspection of Lower Intestinal Tract, Via Natural or Artificial Opening Endoscopic (ICD-10-PCS; CPT 45378; principal; 2025-02-11 12:30)
DX: Z12.11 Encounter for screening for malignant neoplasm of colon (principal); Z86.0100 Personal history of colon polyps, unspecified
CPT/HCPCS: G0105; J2003; J2704

== ENCOUNTER 2025-02-23 12:59 | Outpatient (CLI) | payer MEDICARE, SELFPAY ==
--- NOTE | 2025-02-23 08:45 | DI.RAD_ITS ---
Exam(s) XR HIP LT AP LAT ONLY EXAM: XR HIP LT AP LAT ONLY INDICATION: ANNUAL F/U L JAG. COMPARISON: CR XR HIP LT COMPLETE AP PELVIS from 03/03/2024 TECHNIQUE: 2D digital imaging was performed. Two views. FINDINGS: The alignment of the left hip prosthesis is unchanged. There are no abnormal bony lucencies DATA REPOSITORY: RADIATION DOSE DELIVERED:
== END 2025-02-23 13:00 | disposition home or self-care (01) ==
LOC: DIORS 13:00
PROVIDERS: PCP Family Medicine; Referring Provider Family Medicine; Visit Provider Physician Assistant
DX: Z47.1 Aftercare following joint replacement surgery (principal); Z96.642 Presence of left artificial hip joint
CPT/HCPCS: 99212; 73502